=== PATIENT | male | born 1980 | race Caucasian/White ===

== ENCOUNTER 2016-11-06 07:50 | Emergency (ER) | payer SELFPAY ==
[2016-11-06 07:58] VITALS: TEMP 97.5; BMI 41.0
[2016-11-06] MEDS ORDERED: HYDROCODONE 5 MG/ACETAMIN 325 MG TAB PO ONE (08:05)
--- NOTE | 2016-11-06 08:24 | EDPRACDOC ---
- General Information Stated Complaint: RT ANKLE SWELLING Time Seen by Provider: 11/06/16 08:07 Information Source: Patient Mode of Arrival: Car Home Medications: Home Medications Oxycodone Immediate Release [Oxycodone Immediate Release (OxyIR)] 5 - 15 mg PO Q4H PRN #20 tab 09/10/16 Prednisone [Deltasone, Orasone] 20 mg PO DAILY #12 tab 09/10/16 Ketorolac Tromethamine 10 mg PO Q6H PRN #20 tab 11/06/16 Allergies/Adverse Reactions: Allergies Allergy/AdvReac Type Severity Reaction Status Date / Time No Known Allergies Allergy Verified 09/10/16 05:31 - History of Present Illness Onset: 4 days Ankle Problem Location: Reports: Right Mechanism: Reports: None Able to Bear Weight: Fully Pain Severity: Reports: Mild Associated Signs & Symptoms: Reports: None - Treatment Prior to ED Arrival 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[employer] (Medication/ Hydrocodone x1 0300 Dose/Time) ED Past Medical History - History Reviewed Yes Nurses notes reviewed and agree except as marked - Patient Medical History Psychological History: Denies: Depression Systemic History: Denies: Cancer - Social Medical History Smoking Status: Heavy tobacco smoker (5 or more cigarettes/day or daily pipe/ cigar) EDM Review of Systems - Review of Systems ROS Negative Except as Marked: Yes All systems reviewed and were negative except as marked - Physical Exam Constitutional: No apparent distress Oriented to: Time, Person, Place Last recorded Vital Signs: Last Vital Signs Temp 97.5 F 11/06/16 07:55 Pulse 94 11/06/16 07:55 Resp 18 11/06/16 07:55 BP 156/76 11/06/16 07:55 Pulse Ox 95 11/06/16 07:55 Oxygen Pulse Oxygen Saturation 95 O2 Device Room Air Oxygen Flow Rate Fraction of Inspired Oxygen ( FIO2) ED Ankle Problem Phys Exam - Musculoskeletal Ankle: Swelling, Mild Tenderness Achilles Tendon: Normal Knee: Normal Lower Leg: Normal Foot: Normal Distal Function/Circulation: Normal, Capillary Refill. negative: Motor Deficit , Pulse Deficit, Sensory Deficit Decision Time to Discharge: 08:47 - Departure Yes I personally saw and evaluated the patient. Disposition: Home Condition: Good Final Diagnosis: RIGHT ANKLE PAIN Instructions: Swollen Joint (ED) Education/Counseling Given To: Patient, Family Member Education/Counseling Given Regarding: Diagnosis, Treatment, Prognosis Referrals: None,No Provider [Primary Care Provider] - One Week Yimi Benson MD [Staff Physician] - One Week Prescriptions: New Ketorolac Tromethamine 10 mg PO Q6H PRN #20 tab PRN Reason: Pain No Action Oxycodone Immediate Release [Oxycodone Immediate Release (OxyIR)] 5 - 15 mg PO Q4H PRN #20 tab PRN Reason: Pain Prednisone [Deltasone, Orasone] 20 mg PO DAILY #12 tab
--- NOTE | 2016-11-06 08:25 | DIRPT ---
CLINICAL DATA: Pain, swelling for 4 days. No known injury. EXAM: RIGHT ANKLE - COMPLETE 3+ VIEW COMPARISON: None. FINDINGS: There is no evidence of fracture, dislocation, or joint effusion. There is no evidence of arthropathy or other focal bone abnormality. Soft tissues are unremarkable. IMPRESSION: Negative. Electronically Signed By: Jose Carlos Garza M.D. On: 11/06/2016 08:22
[2016-11-06 09:07] VITALS: BP 144/82; PULSE 89
== END 2016-11-06 09:05 | disposition home or self-care (01) ==
LOC: ED 07:50
DX: M25.571 Pain in right ankle and joints of right foot (principal)
CPT/HCPCS: 73610; 99283; J3490